=== PATIENT | female | born 1950 | race Caucasian/White ===

== ENCOUNTER → 2017-01-13 | Day surgery (SDC) | payer OTHER ==
[2017-01-11 09:57] VITALS: BMI 28.0
[~2017-01-13] VITALS: Ht 154.9 cm; Wt 68.2 kg
[~2017-01-13] MED LIST: BIOT1CAP8 PO; FERR1TAB23 PO; FLUO10CA48 PO; FLUO20CA35 PO; GABA-113 PO; GARC1TAB PO; HYDR50TA3 PO; IBUP-1050 PO; LIDOCAINE HCL 2% 2 ML VIAL (20MG/ML) ONE; LOSA50TA54 PO; MELATAB2 PO; PRLSR20 PO; PRM/45 PO; PROPOFOL IV EMULSION 10 MG/ML 20 ML VIAL IV ONE; SODIUM CHLORIDE 0.9% 500ML 500 ML IV ONE; ZOLP10TA PO
[2017-01-13 10:22] VITALS: Ht 154.9 cm; Wt 68.2 kg
--- NOTE | 2017-01-13 10:44 | Endo History and Physical ---
History & Physical Date of Service: Jan 13, 2017. Chief Complaint: BLACK STOOLS DIARRHEA Referring Physician: DR ELBA COLORADO History of Present Illness 66 yo CF who presents for EGD secondary to melena and diarrhea. Past Surgical History Hx Cardiac Surgery: No Hx Internal Defibrillator: No Hx Pacemaker: No Hx Abdominal Surgery: Yes () Hx of Implantable Prosthesis: No Hx Post-Op Nausea and Vomiting: No Hx Cancer Surgery: No Hx Thoracic Surgery: No Hx Orthopedic: Yes (RT CTR, LT HAND TRIGGER THUMB RELEASE) Hx Urinary Tract Surgery: No Family History Colon CA Social History Smoking Status: Current Every Day Smoker Hx Substance Use: No Hx Alcohol Use: No Allergies Coded Allergies: Iodine (Verified Allergy, Unknown, RASH, 01/13/17) Nickel (Verified Allergy, Unknown, RASH, 01/13/17) Current Medications Reported Home Medications Medications Dose Route/Sig Max Daily Dose Days Date Category Ambien (Zolpidem Tartrate) 10 Mg Tab 10 Mg PO DAILY PRN 01/11/17 Reported Garcinia Cambogia (Garcinia Cambogia-Chromium) 1 Tab Tab 1 Tab PO BID 01/11/17 Reported Melatonin Maximum Strengt (Melatonin) 5 Mg Tab 2 Tabs PO HS 01/11/17 Reported Advil (Ibuprofen) 200 Mg Tab 400 Mg PO HS 01/11/17 Reported Neurontin (Gabapentin) 300 Mg Cap 300 Mg PO HS 01/11/17 Reported Biotin 1 Mg Cap 1 Cap PO QAM 01/11/17 Reported Iron (Ferrous Sulfate) 325 Mg Tab 1 Tab PO QAM 01/11/17 Reported Premarin (Estrogens Conjugated) 0.45 Mg Tab 0.45 Mg PO QAM 01/11/17 Reported Prilosec (Omeprazole) 20 Mg Capcr 20 Mg PO QAM 01/11/17 Reported Prozac (Fluoxetine HCl) 20 Mg Cap 20 Mg PO QAM 01/11/17 Reported Prozac (Fluoxetine HCl) 10 Mg Cap 10 Mg PO QAM 01/11/17 Reported Hctz (Hydrochlorothiazide) 50 Mg Tab 50 Mg PO QAM 01/11/17 Reported Cozaar (Losartan Potassium) 50 Mg Tab 50 Mg PO QAM 01/11/17 Reported Vital Signs Weight (Kilograms): 68.18 Height (Feet): 5 Height (Inches): 1 Date Time Temp Pulse Resp B/P (MAP) Pulse Ox O2 Delivery O2 Flow Rate FiO2 01/13/17 10:26 37 74 18 133/63 (86) 94 Room Air Physical Exam General Appearance: WD/WN, no apparent distress Respiratory/Chest: Auscultation: breath sounds normal Cardiovascular: Heart Auscultation: RRR Abdomen: Bowel Sounds: normal Inspection & Palpation: soft, non-distended, no tenderness, guarding & rebound Assessment and Plan Assessment: 66 yo CF who presents for EGD secondary to melena and diarrhea. Plan: Proceed with EGD.
--- NOTE | 2017-01-13 11:16 | GI REPORT ---
Procedure Date: 01/13/2017 10:52 AM Procedure: Upper GI endoscopy Indications: Melena Medicines: Monitored Anesthesia Care Complications: No immediate complications. Estimated Blood Loss: Estimated blood loss: none. Procedure: Pre-Anesthesia Assessment: - Prior to the procedure, a History and Physical was performed, and patient medications and allergies were reviewed. The patient's tolerance of previous anesthesia was also reviewed. The risks and benefits of the procedure and the sedation options and risks were discussed with the patient. All questions were answered, and informed consent was obtained. Prior Anticoagulants: The patient has taken ibuprofen, last dose was 1 day prior to procedure. ASA Grade Assessment: II - A patient with mild systemic disease. After reviewing the risks and benefits, the patient was deemed in satisfactory condition to undergo the procedure. After obtaining informed consent, the endoscope was passed under direct vision. Throughout the procedure, the patient's blood pressure, pulse, and oxygen saturations were monitored continuously. The Scope was introduced through the mouth, and advanced to the second part of duodenum. The upper GI endoscopy was accomplished without difficulty. The patient tolerated the procedure well. Findings: The esophagus was normal. Localized mild inflammation characterized by erythema was found in the gastric antrum. Biopsies were taken with a cold forceps for histology. The examined duodenum was normal. Impression: - Normal esophagus. - Gastritis. Biopsied. - Normal examined duodenum. Recommendation: - Resume previous diet. - Continue present medications. - Await pathology results. - Return to GI office as previously scheduled. Jose Daniels DO 01/13/2017 11:15:08 AM This report has been signed electronically. Note Initiated On: 01/13/2017 10:52 AM I attest to the content of the Intraoperative Record and orders documented therein, exceptions below
--- NOTE | 2017-01-13 11:41 | Discharge Instructions ---
Endoscopy Patient Instructions Date / Procedure(s) Performed Jan 13, 2017. EGD Allergy Information Coded Allergies: Iodine (Verified Allergy, Unknown, RASH, 01/13/17) Nickel (Verified Allergy, Unknown, RASH, 01/13/17) Discharge Date / Findings Jan 13, 2017. Gastritis s/p biopsies Medication Instructions OK to resume all medications today as prescribed Reported Home Medications Medications Dose Route/Sig Max Daily Dose Days Date Category Ambien (Zolpidem Tartrate) 10 Mg Tab 10 Mg PO DAILY PRN 01/11/17 Reported Garcinia Cambogia (Garcinia Cambogia-Chromium) 1 Tab Tab 1 Tab PO BID 01/11/17 Reported Melatonin Maximum Strengt (Melatonin) 5 Mg Tab 2 Tabs PO HS 01/11/17 Reported Advil (Ibuprofen) 200 Mg Tab 400 Mg PO HS 01/11/17 Reported Neurontin (Gabapentin) 300 Mg Cap 300 Mg PO HS 01/11/17 Reported Biotin 1 Mg Cap 1 Cap PO QAM 01/11/17 Reported Iron (Ferrous Sulfate) 325 Mg Tab 1 Tab PO QAM 01/11/17 Reported Premarin (Estrogens Conjugated) 0.45 Mg Tab 0.45 Mg PO QAM 01/11/17 Reported Prilosec (Omeprazole) 20 Mg Capcr 20 Mg PO QAM 01/11/17 Reported Prozac (Fluoxetine HCl) 20 Mg Cap 20 Mg PO QAM 01/11/17 Reported Prozac (Fluoxetine HCl) 10 Mg Cap 10 Mg PO QAM 01/11/17 Reported Hctz (Hydrochlorothiazide) 50 Mg Tab 50 Mg PO QAM 01/11/17 Reported Cozaar (Losartan Potassium) 50 Mg Tab 50 Mg PO QAM 01/11/17 Reported Provider Instructions Activity Restrictions - No exercising or heavy lifting for 24 hours. - Do not drink alcohol the day of the procedure. - Do not drive a car or operate machinery until the day after the procedure. - Do not make any important decisions or sign important papers in 24 hours after the procedure. Following Day: - Return to full activity which may include returning to work/school. Diet Start your diet with liquids and light foods (jello, soup, juice, toast). Then eat your usual diet if not nauseated. Treatment For Common After Affects For mild abdominal pain, bloating, or excessive gas: - Rest - Eat lightly - Lie on right side Follow-Up Information Follow-up with DR ELBA COLORADO as scheduled Anesthesia Information What You Should Know You have had a procedure that required some medicine to reduce anxiety and discomfort. This treatment is called moderate sedation. After receiving the treatment, you may be sleepy, but you will be able to breathe on your own. The effects of the treatment may last for several hours. Follow these instructions along with Activity/Diet recommendations noted above: * Do NOT do anything where dizziness or clumsiness would be dangerous. * Rest quietly at home today, then you can be up and about tomorrow. * Have a responsible person stay with you the rest of today. * You may have had an I.V. today. If so, you may take the dressing off later today. Recommendations Call your doctor if: * Trouble breathing * Continuous vomiting for more than 24 hours * Temperature above 101 degrees * Severe abdominal pain or bloating * Pain not relieved by pain medicine ordered * There is increased drainage or redness from any incision * A large amount of rectal bleeding greater than 2-3 tablespoons. (If you had a polyp/s removed or have hemorrhoids, a small amount of blood - from the rectum is to be expected.) * You have any unanswered questions or concerns. IN THE EVENT OF A SERIOUS EMERGENCY, GO TO THE NEAREST EMERGENCY ROOM Your discharge instructions were prepared by provider Jose Daniels. Patient Instructions Signature Page Jacque Bocanegra Patient (or Guardian) Signature/Date: I have read and understand the instructions given to me by my caregivers. Caregiver/RN/Doctor Signature/Date: The above-named patient and/or guardian has received patient instructions on this date. + Original Patient Signature Page (only) stays with chart. Please make copy for patient.
--- NOTE | 2017-01-13 11:42 | Anesthesiology Progress Note ---
Anesthesia Post Op Note Date & Time Jan 13, 2017 at 11:42 Vital Signs Pain Intensity: 0 Vital Signs Past 12 Hours Date Time Temp Pulse Resp B/P (MAP) Pulse Ox O2 Delivery O2 Flow Rate FiO2 01/13/17 11:28 67 18 100/49 (66) 93 Room Air 01/13/17 11:13 65 20 108/58 (75) 95 Room Air 01/13/17 10:26 37 74 18 133/63 (86) 94 Room Air Notes Mental Status: alert / awake / arousable, participated in evaluation Pt Amnestic to Procedure: Yes Nausea / Vomiting: adequately controlled Pain: adequately controlled Airway Patency, RR, SpO2: stable & adequate BP & HR: stable & adequate Hydration State: stable & adequate Anesthetic Complications: no major complications apparent
[2017-01-13 11:45] VITALS: BP 130/62; PULSE 62; O2SAT 93
== END | disposition home or self-care (01) ==
LOC: C.GI 09:36
PROVIDERS: ATTEND Internal Medicine
DX: K92.1 Melena (principal); R19.7 Diarrhea, unspecified; K29.50 Unspecified chronic gastritis without bleeding; Z80.0 Family history of malignant neoplasm of digestive organs; F17.200 Nicotine dependence, unspecified, uncomplicated; I10 Essential (primary) hypertension; F41.9 Anxiety disorder, unspecified

== ENCOUNTER → 2017-07-20 | Outpatient (CLI) | payer OTHER ==
[~2017-07-20] MED LIST changes: -LIDOCAINE HCL 2% 2 ML VIAL (20MG/ML) ONE; -PROPOFOL IV EMULSION 10 MG/ML 20 ML VIAL IV ONE; -SODIUM CHLORIDE 0.9% 500ML 500 ML IV ONE
== END | disposition home or self-care (01) ==
LOC: C.LABBFT 11:41
PROVIDERS: ATTEND Internal Medicine
DX: R39.9 Unspecified symptoms and signs involving the genitourinary system (principal)

== ENCOUNTER → 2017-09-05 | Outpatient (CLI) | payer OTHER | END | disposition home or self-care (01) | LOC: C.MAMM 09:24 | PROVIDERS: ATTEND Internal Medicine | DX: Z00.00 Encounter for general adult medical examination without abnormal findings (principal); E28.39 Other primary ovarian failure; M85.89 Other specified disorders of bone density and structure, multiple sites ==

== ENCOUNTER → 2017-09-12 | Outpatient (CLI) | payer OTHER ==
[2017-09-12 15:03] LABS: BASO % 0.7 %; BASO ABS # 0.05 K/uL (0-0.2); EOS % 1.3 %; EOS ABS # 0.09 K/uL (0-0.5); HEMATOCRIT 39.8 % (37-47); HEMOGLOBIN 13.4 g/dL (12.0-16.0); IG# 0.01 K/uL (0.00-0.02); LYMPH % 35.1 %; LYMPH ABS # 2.43 K/uL (1.2-3.4); MEAN CELL VOLUME 94.8 fL (80-100); MEAN CORPUSCULAR HEMOGLOBIN 31.9 pg (25-34); MEAN CORPUSCULAR HGB CONC 33.7 g/dl (32-36); MEAN PLATELET VOLUME 10.6 fL (7.4-10.4); MONO % 4.9 %; MONO ABS # 0.34 K/uL (0.11-0.59); NEUT % 57.9 %; NEUT ABS # 4.01 K/uL (1.4-6.5); PLATELET COUNT 259 K/uL (130-400); RED CELL DISTRIBUTION WIDTH CV 12.8 % (11.5-14.5); RED CELL DISTRIBUTION WIDTH SD 44.1 fL (36.4-46.3); WHITE BLOOD COUNT 6.93 K/uL (4.8-10.8)
[2017-09-12 15:21] LABS: ALBUMIN 3.5 gm/dl (3.4-5.0); ALT/SGPT 28 U/L (12-78); AST/SGOT 26 U/L (15-37); BLOOD UREA NITROGEN 23 mg/dl (7-18); CALCIUM 8.7 mg/dl (8.5-10.1); CARBON DIOXIDE 30 mmol/L (21-32); CREATININE 0.73 mg/dl (0.60-1.20); GLUCOSE 92 mg/dl (70-99); POTASSIUM 3.6 mmol/L (3.5-5.1); SODIUM 137 mmol/L (136-145)
[2017-09-12 15:32] LABS: ALKALINE PHOSPHATASE 76 U/L (45-117); CHOLESTEROL 188 mg/dl (0-200); LDL CHOLESTEROL CALCULATED 101 mg/dl; TOTAL PROTEIN 6.8 gm/dl (6.4-8.2)
== END | disposition home or self-care (01) ==
LOC: C.LABBFT 09:57
PROVIDERS: ATTEND Internal Medicine
DX: Z00.00 Encounter for general adult medical examination without abnormal findings (principal); I10 Essential (primary) hypertension; E04.1 Nontoxic single thyroid nodule; E28.39 Other primary ovarian failure; N95.1 Menopausal and female climacteric states; G25.81 Restless legs syndrome; M85.80 Other specified disorders of bone density and structure, unspecified site